=== PATIENT | male | born 1950 | race Caucasian/White ===

== ENCOUNTER 2016-11-30 10:07 | Emergency (ER) | payer BC ==
[~2016-11-30] VITALS: Ht 182.9 cm; Wt 149.2 kg
[~2016-11-30 10:07] MED LIST: ALLO300T2 PO; ASCO10007 PO; GABA600T PO; INSU100V7 SQ; METF850T2 PO; METO25TA6 PO; NORT25CA PO; OXYB5TAB PO; PARO30TA74 PO; PRAV40TA3 PO
--- NOTE | 2016-11-30 10:07 | NUR ---
BIBRA 909N C/O LACERATION BELOW THE LEFT POPLITEAL AREA S/P GLF FROM WHEELCHAIR TO BED
[2016-11-30] MEDS ORDERED: LIDOCAINE HCL/PF 1% 30 ML SDV ONE (10:20)
[2016-11-30] MEDS: LIDOCAINE 1%-EPI 1:100,000 20 ML VIAL TP ONE (10:21)
--- NOTE | 2016-11-30 10:30 | NUR ---
DR MILLS AT BEDSIDE FOR EVAL
--- NOTE | 2016-11-30 11:07 | NUR ---
PT TAKEN TO CT
--- NOTE | 2016-11-30 11:38 | NUR ---
Patient discharged to home in stable condition. Written and verbal after care instructions given. Patient verbalizes understanding of instruction.
[2016-11-30 11:39] VITALS: BP 152/73
--- NOTE | 2016-11-30 11:41 | NUR ---
CALLED [facility] FOR TRANSPORT, SPOKE WITH SILVIA. EXPECTING A CALL BACK FOR AN ETA.
--- NOTE | 2016-11-30 12:40 | NUR ---
[facility] CALLED WITH AN ETA OF 1HR FOR TRANSPORT.
--- NOTE | 2016-11-30 14:05 | NUR ---
[facility] GETTING BARIATRIC GURNEY AROUND 330 PM-4PM
--- NOTE | 2016-11-30 14:06 | NUR ---
CALLED FOR FOOD TRAY CARDIAC DIABETIC DIET
--- NOTE | 2016-11-30 15:39 | NUR ---
Patient discharged to home in stable condition VIA AMBULANCE. Written and verbal after care instructions given. Patient AND EMS verbalized understanding of instruction.
== END 2016-11-30 16:04 | disposition home or self-care (01) ==
LOC: ER 10:09
DX: S81.812A Laceration without foreign body, left lower leg, initial encounter (principal); L03.116 Cellulitis of left lower limb; R60.0 Localized edema; N31.9 Neuromuscular dysfunction of bladder, unspecified; R51 Headache; E11.9 Type 2 diabetes mellitus without complications; I10 Essential (primary) hypertension; Z74.01 Bed confinement status; Z79.4 Long term (current) use of insulin; Z88.0 Allergy status to penicillin; Z89.611 Acquired absence of right leg above knee; Z99.3 Dependence on wheelchair; Z88.1 Allergy status to other antibiotic agents; Z88.8 Allergy status to other drugs, medicaments and biological substances; Z98.890 Other specified postprocedural states; W18.39XA Other fall on same level, initial encounter; Y93.89 Activity, other specified; Y92.89 Other specified places as the place of occurrence of the external cause; Y99.9 Unspecified external cause status
CPT/HCPCS: 70450-TC; A4606; A6402; J3490; Z7610

== ENCOUNTER 2017-06-21 18:42 | Inpatient (IN) | payer BC ==
[~2017-06-21] VITALS: Ht 182.9 cm; Wt 156.0 kg
--- NOTE | 2017-06-21 18:45 | NUR ---
BIBRA88 C/O HIGH BP 180/100 AND LEFT LOWER EXTREMITY EDEMA/REDNESS. PATIENT HAS RIGHT AKA, WITH LEFT LEG REDNESS, SWELLING, AND WARM TO TOUCH. PATIENT IS A/OX 4. BREATHING EVEN AND UNLABORED. NO SOB, NAD. PARK IN PLACE CARBON SETTER. VITALS STABLE. SAFETY AND COMFORT MEASURES IN PLACE. AWAITING MD ORDERS.
--- NOTE | 2017-06-21 18:50 | NUR ---
NEW IV STARTED ON RFA, 18G, BLOOD DRAWN AND SENT TO LAB.
[2017-06-21] MEDS ORDERED: IV NS 0.9% 500 ML BAG IV ONE (19:00)
[2017-06-21] MEDS ORDERED: VANCOMYCIN 1 GM in IV D5W 250 ML IV ONE (19:00)
--- NOTE | 2017-06-21 19:00 | NUR ---
URINE OBTAINED AND SENT TO LAB.
[2017-06-21 19:06] LABS: BASOPHILS # (AUTO) 0.2 /CMM (0.0-0.2); BASOPHILS % (AUTO) 1.1 % (0.0-2.0); EOSINOPHILS # (AUTO) 0.2 /CMM (0.0-0.7); EOSINOPHILS % (AUTO) 1.2 % (0.0-6.0); HEMATOCRIT 35 % (39-51); HEMOGLOBIN 11.4 g/dL (13.5-17.5); LYMPHOCYTES # (AUTO) 1.4 /CMM (0.8-4.8); LYMPHOCYTES % (AUTO) 9.8 % (20.0-44.0); MEAN CORPUSCULAR HEMOGLOBIN 28 PG (26.0-33.0); MEAN CORPUSCULAR HGB CONC 33 g/dl (31.0-36.0); MEAN CORPUSCULAR VOLUME 86 fL (80-96); MONOCYTES # (AUTO) 1.2 /CMM (0.1-1.30); MONOCYTES % (AUTO) 8.5 % (2.0-12.0); NEUTROPHILS # (AUTO) 11.5 /CMM (1.8-8.9); NEUTROPHILS % (AUTO) 79.4 % (43.0-81.0); PLATELET COUNT (AUTO) 410 /CMM (150-450); RDW COEFFICIENT OF VARIATION 13.8 (11.5-15.0); RED BLOOD CELL COUNT(AUTO) 4.03 MIL/uL (4.5-6.0); WHITE BLOOD COUNT (AUTO) 14.5 K/uL (4.3-11.0)
[2017-06-21] MEDS ORDERED: VANCOMYCIN 1 GM VIAL ONE (19:19)
[2017-06-21 19:20] LABS: INR 0.98 (0.85-1.15)
[2017-06-21] MEDS ORDERED: SITA100T PO (19:20)
[2017-06-21] MEDS ORDERED: AMLO5TAB2 PO (19:20)
[2017-06-21] MEDS ORDERED: FURO20TA4 PO (19:20)
[2017-06-21 19:28] LABS: APPEARANCE,URINE Clear (CLEAR); BILIRUBIN,URINE Negative (NEGATIVE); BLOOD, URINE Moderate Ery/uL (NEGATIVE); COLOR,URINE Yellow (YELLOW); KETONES,URINE Negative (NEGATIVE); LEUKOCYTE ESTERASE ,URINE Large (NEGATIVE); NITRITE, URINE Positive (NEGATIVE); PROTEIN,URINE >=300 mg/dl (NEGATIVE); UGLUCOSE Negative (NEGATIVE)
[2017-06-21 19:28] LABS: ALANINE AMINOTRANSFERASE 21 U/L (12-78); ALKALINE PHOSPHATASE 111 U/L (46-116); ASPARTATE AMINOTRANSFERASE 21 U/L (15-37); BILIRUBIN,DIRECT 0.1 mg/dL (0.0-0.2); BILIRUBIN,TOTAL 0.2 mg/dL (0.2-1.0); CALCIUM, SERUM 8.8 mg/dL (8.5-10.1); CARBON DIOXIDE 29 mmol/L (21-32); CHLORIDE 105 mmol/L (98-107); CREATININE 2.4 mg/dL (0.6-1.3); GLUCOSE 144 mg/dL (74-106); POTASSIUM 5.3 mmol/L (3.5-5.1); SODIUM SERUM 140 mmol/L (136-145); TOTAL PROTEIN, SERUM 7.1 g/dL (6.4-8.2); UREA NITROGEN, BLOOD 41 mg/dL (7-18)
--- NOTE | 2017-06-21 19:28 | NUR ---
REPORT GIVEN TO PELLETIZER OPERATOR, ED FOR ALISON.
[2017-06-21 19:30] LABS: TROPONIN I < 0.017 ng/mL (0.00-0.056)
[2017-06-21 19:41] LABS: BACTERIA,URINE 3+ /HPF (None Seen); WBC,URINE 81-100 /HPF (0-3)
[2017-06-21 19:42] LABS: SQUAMOUS EPITHELIAL CELL,UR Few /HPF (None Seen)
--- NOTE | 2017-06-21 21:17 | NUR ---
PAGED EPIC FOR PANEL
--- NOTE | 2017-06-21 21:33 | NUR ---
ER MD TALKING TO PT REGARDING PT ADMISSION.
--- NOTE | 2017-06-21 21:44 | NUR ---
CALLED NURSE SUP FOR TELE BED
[2017-06-21] MEDS ORDERED: MORPHINE SULFATE INJ 2 MG/ML DISP.SYRIN IV PRN (22:00)
[2017-06-21] MEDS ORDERED: ONDANSETRON HCL/PF 4 MG/2 ML VIAL IVP PRN (22:00)
[2017-06-21] MEDS ORDERED: DEXTROSE 50%-WATER 50 ML DISP.SYRIN IV PRN (22:00)
[2017-06-21] MEDS ORDERED: ACETAMINOPHEN 325 MG TABLET PO PRN (22:00)
[2017-06-21] MEDS ORDERED: ZOLPIDEM TARTRATE 5 MG TABLET PO PRN (22:00)
[2017-06-21] MEDS ORDERED: Z GUARD REMEDY 2 OZ OINT TP PRN (22:00)
[2017-06-21] MEDS ORDERED: MAG HYDROX/AL HYDROX/SIMETH 30 ML UDC PO PRN (22:00)
[2017-06-21] MEDS ORDERED: CEFEPIME 1 GM in IV D5W 50 ML IV ONE (22:00)
[2017-06-21] MEDS ORDERED: MAGNESIUM HYDROXIDE 30 ML UDC PO PRN (22:00)
[2017-06-21] MEDS ORDERED: *INSULIN REGULAR(HUMULIN R)HUM 100 UNIT/ML VIAL SQ PRN (22:00)
--- NOTE | 2017-06-21 22:47 | NUR ---
REPORT CALLED TO M/S KENNETH TIRADO. PENDING HOSPITAL ADMISSION.
[2017-06-21 23:20] VITALS: BP 154/72
--- NOTE | 2017-06-21 23:20 | NUR ---
MS RN ADMITTING NOTES: ADMITTED A 66 YO MALE PATIENT WHO WAS SEEN IN THE ER FOR WORSENING LEFT LEG SWELLING NAD WARMTH. PATIENT WAS BROUGHT TO MS FLOOR VIA KAILEE, ALIYA, ON O2 AT 2 LPM VIA NC, BUT UPON COMING INTO ROOM REQUESTED FOR IT NOT TO BE PLACED BACK ON HIM. BREATHING EVEN AND UNLABORED, BREATH SOUNDS CLEAR AT UPPER LUNG FUENTES AND DIMINISHED AT BASES. PIV OVER RFA G 18 INTACT AND PATENT TO FLUSH. NOTED R ABOVE KNEE AMPUTATION, AND LEFT LEG WITH 3+ PITTING EDEMA, REDNESS AND WARMTH FROM BELOW THE KNEE TO ANKLE. LEFT FOOT ALSO WITH 3+ PITTING EDEMA. NOTED WOUNDS OVER LEFT HEEL AND SACRAL AREA, PROTECTED WITH MEPILEX. PARK CATHETER IN PLACE DRAINING CLOUDY YELLOW URINE. PROVIDED FOR COMFORT AND SAFETY. BED IN LOWEST AND LOCKED POSITION, SIDERAILS UP X 3, CALL LIGHT WITHIN REACH. WILL CONT TO MONITOR.
[2017-06-21 23:30] VITALS: BP 154/72
[2017-06-22] MEDS ORDERED: CEFEPIME 1 GM VIAL ONE (00:08)
[2017-06-22] MEDS: BLOOD SUGAR DIAGNOSTIC 1 EACH STRIP VI SCH ×4 (00:10→17:47)
--- NOTE | 2017-06-22 00:10 | NUR ---
RN NOTES: PATIENT COMPLAINED OF 6/10 PAIN OVER LEFT LEG/ CALF AND FOOT. ADMINISTERED NORCO 5-325 MG PO. BLOOD SUGAR CHECKED AT 119 MG/DL, NO INSULIN INDICATED AT THIS TIME.
[2017-06-22] MEDS: HYDROCODONE/APAP 5/325MG 1 EACH TABLET PO PRN ×2 (00:11→09:19)
--- NOTE | 2017-06-22 00:30 | NUR ---
RN NOTES: CEFEPIME IV ORDERED BY DR LINDO A ONE TIME DOSE GIVEN BY ER NURSE IN ROOM.
[2017-06-22 04:08] VITALS: BP 144/80
--- NOTE | 2017-06-22 05:30 | NUR ---
RN NOTES: OFFERED TO CHANGE PATIENT'S PARK CATHETER, EXPLAINED THAT THIS IS THE RECOMMENDATION OF MD, AND THAT HE APPEARS TO HAVE INFECTION WITH HIS URINE. PATIENT REFUSED, SAYING THAT IT HAS JUST BEEN CHANGED WEDNESDAY OF LAST WEEK,JUNE 14 2017. RISKS AND BENEFITS EXPLAINED TO PATIENT. PATIENT STILL REFUSING. WILL CONT TO MONITOR.
--- NOTE | 2017-06-22 06:34 | NUR ---
MS RN CLOSING NOTES: PATIENT IN BED, AOX4, ON ROOM AIR, BREATHING EVEN AND UNLABORED. APPEARS CALM AND IN NO DISTRESS. PIV OVER RFA G 18 INTACT AND PATENT TO FLUSH. PROVIDED FOR COMFORT AND SAFETY, BED IN LOWEST AND LOCKED POSITION, SIDERAILS UP X 3, CALL LIGHT WITHIN REACH. AM BLOOD SUGAR CHECKED AT 142 MG/DL, WILL ADMINISTER REGULAR INSULIN PER SCALE SOON MEDICATION IS AVAILABLE. WILL ENDORSE TO AM RN FOR ALISON.
[2017-06-22 06:57] LABS: BASOPHILS % (AUTO) 0.2 % (0.0-2.0); EOSINOPHILS # (AUTO) 0.2 /CMM (0.0-0.7); EOSINOPHILS % (AUTO) 1.2 % (0.0-6.0); HEMATOCRIT 33 % (39-51); HEMOGLOBIN 11.1 g/dL (13.5-17.5); LYMPHOCYTES # (AUTO) 1.3 /CMM (0.8-4.8); MEAN CORPUSCULAR HEMOGLOBIN 29 PG (26.0-33.0); MEAN CORPUSCULAR HGB CONC 33 g/dl (31.0-36.0); MEAN CORPUSCULAR VOLUME 88 fL (80-96); MONOCYTES # (AUTO) 1.1 /CMM (0.1-1.30); MONOCYTES % (AUTO) 8.4 % (2.0-12.0); NEUTROPHILS # (AUTO) 10.3 /CMM (1.8-8.9); NEUTROPHILS % (AUTO) 80.2 % (43.0-81.0); PLATELET COUNT (AUTO) 339 /CMM (150-450); RDW COEFFICIENT OF VARIATION 14.3 (11.5-15.0); RED BLOOD CELL COUNT(AUTO) 3.82 MIL/uL (4.5-6.0); WHITE BLOOD COUNT (AUTO) 12.9 K/uL (4.3-11.0)
[2017-06-22] MEDS: INSULIN REGULAR, HUMAN 100 UNIT/ML 3 ML VIAL SQ PRN ×2 (07:11→12:09)
[2017-06-22 07:17] LABS: CALCIUM, SERUM 8.5 mg/dL (8.5-10.1); CREATININE 2.2 mg/dL (0.6-1.3); MAGNESIUM 1.8 mg/dL (1.8-2.4); PHOSPHORUS 3.7 mg/dL (2.5-4.9); POTASSIUM 4.7 mmol/L (3.5-5.1)
[2017-06-22 08:00] VITALS: BP 133/67
--- NOTE | 2017-06-22 08:00 | NUR ---
MS KENNETH AM NOTES: RECEIVED PT AOX4, ON O2 AT 2 LPM VIA NC, BREATHING EVEN AND UNLABORED, BREATH SOUNDS CLEAR AT UPPER LUNG FUENTES AND DIMINISHED AT BASES. PIV OVER RFA G 18 INTACT AND PATENT TO FLUSH. NOTED R ABOVE KNEE AMPUTATION, AND LEFT LEG WITH 3+ PITTING EDEMA, REDNESS AND WARMTH FROM BELOW THE KNEE TO ANKLE. LEFT FOOT ALSO WITH 3+ PITTING EDEMA. AFLOAT PRABHAKAR HEELS ON PILLOWS. NOTED WOUNDS OVER LEFT HEEL AND SACRAL AREA, PROTECTED WITH MEPILEX. TURNED EVERY TWO HRS.AWAITING FOR WOUND CONSULT.WILL ORDER FOR SPECIAL MATTRESS. PARK CATHETER IN PLACE DRAINING CLOUDY YELLOW URINE. PROVIDED FOR COMFORT AND SAFETY. BED IN LOWEST AND LOCKED POSITION, SIDERAILS UP X 3, CALL LIGHT WITHIN REACH. WILL CONT TO MONITOR.
[2017-06-22] MEDS ORDERED: FEE PK DOSING 1 MIN EA MC ONE (08:17)
[2017-06-22] MEDS ORDERED: GABAPENTIN 300 MG CAPSULE PO SCH ×2 (08:30→11:30)
[2017-06-22] MEDS: METOPROLOL TARTRATE 25 MG TABLET PO SCH ×2 (08:45→17:46)
[2017-06-22] MEDS ORDERED: FUROSEMIDE 20 MG TABLET PO SCH (09:00)
[2017-06-22] MEDS ORDERED: AMLODIPINE BESYLATE 5 MG TABLET PO SCH (09:00)
--- NOTE | 2017-06-22 10:00 | NUR ---
PT'S PARK CATHETER IS LEAKING AND THE BEDSHEETS AND CHUX WAS WET AND MODERATE YELLOW URINE STAINS.PT REFUSED TO HAVE HIS PARK CATH CHANGED SAYING THAT HE HAS HOME HEALTH NURSE WHO IS COMING THIS WEDNESDAY TO CHANGE IT AND THEY USE A SPECIAL COUDE CATHETER SIZE 22
--- NOTE | 2017-06-22 10:09 | NUR ---
WOUND CARE CONSULT: PT PRESENTS WITH OBESITY, RT POSTERIOR THIGH WOUND, LEFT HEEL ULCER AND SACRAL ULCER, PRESENT ON ADMISSION. PARK CATH NOTED TO BE LEAKING. RT AKA STUMP NOTED. RASH NOTED TO GROIN AREAS WITH SOME SPOTS ON ABDOMEN. ALL SKIN PROTECTION AND WOUND CARE RECOMMENDATIONS DISCUSSED WITH NURSING STAFF. [facility] BED WITH ETS AIR ORDERED. WILL SEE PRN. CURRENT TMIOTHY SCORE IS 14. MD IN AGREEMENT WITH PLAN OF CARE. Addendum: 06/22/17 at 1012 by BUNNY JUNG WNDNU Amended: Links added.
[2017-06-22] MEDS ORDERED: MINERAL OIL/PETROLATUM,WHITE 120 GM JAR TP PRN (10:30)
[2017-06-22] MEDS ORDERED: HYDROGEL DRESSING 90 GM TUBE TP PRN (10:30)
[2017-06-22] MEDS ORDERED: HYDROGEL DRESSING 90 GM TUBE TP SCH (10:30)
[2017-06-22] MEDS: MICONAZOLE NITRATE 2% CREAM 1 EA TUBE TP SCH ×2 (13:46→17:47)
[2017-06-22 16:00] VITALS: BP 172/87
--- NOTE | 2017-06-22 17:41 | NUR ---
RECEIVED A CALL FROM SHANIQUA WHO STATED THAT THERE IS [facility] THE [facility] ALREADY SPOKE TO DR MONAE WHO STATED THAT THE PT IS STABLE TO BE DISCHARGED TODAY.PT MADE AWARE.PRESSURE SUPERVISOR TIME BY [facility] WILL BE AT 2029.
--- NOTE | 2017-06-22 18:30 | NUR ---
PT COMFORTABLY LYING IN BARIMAXX MATTRESS.PT DENYING ANY PAIN OR DISTRESS.PAIN MGT EFFECTIVE.CALLED IN REPORT TO RUBI [phone].[facility] ([phone]) WILL BANK TELLER MACHINE MECHANIC THE PT AT 2030.ENDORSED DISCHARGE NOTES TO BRANDONHOMOEOPATH RN.
--- NOTE | 2017-06-22 19:01 | NUR ---
Met with patient,he is morbidly obese. He is alert and pleasant. He lives in the 1st floor apartment with and family. He is confined to chair most of the time. He requires max assist with adl's. He owns 2 wheelchairs, adjustable and a cane. He is currently on service with [facility] [employer] ([phone]). Stated he has a lot of support at home. Might need bariatric transportation to go home. Addendum: 06/22/17 at 1901 by JEANNINE STEELE RN Amended: Links added.
--- NOTE | 2017-06-22 19:30 | NUR ---
RN OPENING NOTES PATIENT IS IN BED, ALERT AND ORIENTED X4. VS STABLE. NO C/O PAIN OR DISCOMFORT AT THIS TIME. RESPIRATIONS EVEN AND UNLABORED. NO SOB NOTED. IV ACCESS ON RIGHT FA 18 G PATENT AND INTACT, NO REDNESS OR INFILTRATION NOTED. F/C IS IN PLACE, DRAINING CLEAR AND YELLOW URINE. PATIENT IS GOING TO BE DISCHARGED TO [facility]. ALL PAPERS SIGNED AND DISCHARGED TEACHING PROVIDED. BED IN LOW AND LOCKED POSITION, SIDE RAILS X2. CALL LIGHT WITHIN EASY REACH. WILL CONTINUE TO MONITOR.
[2017-06-22 20:00] VITALS: BP 145/70
[2017-06-22] MEDS ORDERED: VANCOMYCIN 1.5 GM in IV NS 0.9% 500 ML IV SCH (21:00)
--- NOTE | 2017-06-22 21:00 | NUR ---
RN CLOSING NOTES PATIENT IS DISCHARGED TO [facility] VIA AMBULANCE. VS STABLE. RESPIRATIONS EVEN AND UNLABORED. NO SOB. IV AND FC REMOVED. ALL BELONGINGS ARE TAKEN WITH THE PATIENT. PICTURES ARE TAKEN AND PLACED IN THE CHART. ALL DISCHARGED PAPERS SIGHED. ALL NEEDS AND CARE PROVIDED.
[2017-06-22] MEDS ORDERED: CEFEPIME 1 GM in IV D5W 50 ML IV SCH (23:00)
== END 2017-06-22 21:55 | disposition short-term general hospital (02) | DRG 871 ==
LOC: ER 18:43 → TELE 22:57
PROVIDERS: ADMIT Internal Medicine; ATTEND Internal Medicine
DX: A41.9 Sepsis, unspecified organism (principal); E43 Unspecified severe protein-calorie malnutrition; E11.22 Type 2 diabetes mellitus with diabetic chronic kidney disease; E11.40 Type 2 diabetes mellitus with diabetic neuropathy, unspecified; E11.621 Type 2 diabetes mellitus with foot ulcer; E86.0 Dehydration; L03.116 Cellulitis of left lower limb; N39.0 Urinary tract infection, site not specified; Z68.42 Body mass index [BMI] 45.0-49.9, adult; E66.01 Morbid (severe) obesity due to excess calories; N31.9 Neuromuscular dysfunction of bladder, unspecified; I12.9 Hypertensive chronic kidney disease with stage 1 through stage 4 chronic kidney disease, or unspecified chronic kidney disease; N18.9 Chronic kidney disease, unspecified; Z89.611 Acquired absence of right leg above knee; Z95.1 Presence of aortocoronary bypass graft; Z79.899 Other long term (current) drug therapy; Z88.1 Allergy status to other antibiotic agents; Z88.0 Allergy status to penicillin; Z79.84 Long term (current) use of oral hypoglycemic drugs; Z79.4 Long term (current) use of insulin; L97.529 Non-pressure chronic ulcer of other part of left foot with unspecified severity; I25.10 Atherosclerotic heart disease of native coronary artery without angina pectoris; E78.5 Hyperlipidemia, unspecified; E87.5 Hyperkalemia; D63.8 Anemia in other chronic diseases classified elsewhere; G89.4 Chronic pain syndrome; I70.0 Atherosclerosis of aorta
CPT/HCPCS: 36415; 71045-TC; 80048-TC; 80076-TC; 81000-TC; 82962-TC; 83605-TC; 83735-TC; 84100-TC; 84484-TC; 85025-TC; 85730-TC; 87040-TC; 87081-TC; 87086-TC; 87186-TC; 93971-TC; A6248; A6403; J0692; J1815; J2270; J3370; J7040; J7050; J7060

== ENCOUNTER 2017-07-23 21:40 | Emergency (ER) | payer BC, MEDICAID ==
[~2017-07-23] VITALS: Ht 177.8 cm; Wt 151.5 kg
[~2017-07-23 21:40] MED LIST changes: -ALLO300T2 PO; +AMLO5TAB7 PO; -ASCO10007 PO; +FURO20TA4 PO; -METF850T2 PO; -NORT25CA PO; -OXYB5TAB PO; -PARO30TA74 PO; -PRAV40TA3 PO; +SITA100T PO
--- NOTE | 2017-07-23 21:50 | NUR ---
PT BIBA#[id number] FROM HOME, PT STATES HE NEEDS HIS PARK CHANGED AND HAS NOT BEEN ABLE TO URINATE SINCE 1400 TODAY, NAD NOTED, VSS, RESP EVEN AND UNLABORED, PT WAS PUT ON MONITOR, WAITING FOR MD KYLE.
[2017-07-23] MEDS ORDERED: LIDOCAINE 2% JEL UROJET 10 ML MM ONE ×2 (22:24→22:30)
--- NOTE | 2017-07-23 22:58 | NUR ---
urine sent to lab
[2017-07-23 23:21] LABS: APPEARANCE,URINE CLOUDY (CLEAR); BILIRUBIN,URINE NEGATIVE (NEGATIVE); BLOOD, URINE 3+ Ery/uL (NEGATIVE); COLOR,URINE AMBER (YELLOW); KETONES,URINE NEGATIVE (NEGATIVE); LEUKOCYTE ESTERASE ,URINE 3+ (NEGATIVE); NITRITE, URINE NEGATIVE (NEGATIVE); PROTEIN,URINE 2+ mg/dl (NEGATIVE); UGLUCOSE NEGATIVE (NEGATIVE); UROBILINOGEN,URINE 0.2 EU/dL (0.2)
--- NOTE | 2017-07-23 23:26 | NUR ---
Patient is resting comfortably in bed with eyes closed. Easily aroused. VSS
--- NOTE | 2017-07-23 23:27 | NUR ---
CALLED [facility] TO ARRANGE A BARIATRIC BLS TRANSPORT BACK TO HIS RESIDENCE AND SPOKE WITH DISPATCHER ETTA AND WAS GIVEN AN ETA CORRECTIONAL AGENCY DIRECTOR TIME OF 0230.
[2017-07-23 23:43] LABS: BACTERIA,URINE Many /HPF (None Seen); RBC,URINE TOO NUMEROUS TO COUN /HPF (0-2); SQUAMOUS EPITHELIAL CELL,UR Few /HPF (None Seen); WBC,URINE TOO NUMEROUS TO COUN /HPF (0-3); YEAST,URINE Few /HPF (None Seen)
--- NOTE | 2017-07-24 00:30 | NUR ---
ON CELL PHONE. DENIES ANY SX'S AT THIS TIME. HOB ELEA=VATED FOR COMFORT.
--- NOTE | 2017-07-24 01:02 | NUR ---
REPOSITIONED FOR COMFORT. REMINDED OS ETA 0230.
--- NOTE | 2017-07-24 02:30 | NUR ---
REPORT GIVEN TO [facility] STAFF AND PT TRANSPORTED HOME.
[2017-07-24 02:31] VITALS: BP 147/91
== END 2017-07-24 02:32 | disposition home or self-care (01) ==
LOC: ER 21:42
DX: T83.098A Other mechanical complication of other urinary catheter, initial encounter (principal); R31.9 Hematuria, unspecified; E11.9 Type 2 diabetes mellitus without complications; E66.01 Morbid (severe) obesity due to excess calories; I10 Essential (primary) hypertension; Z79.4 Long term (current) use of insulin; Z88.0 Allergy status to penicillin; Z89.611 Acquired absence of right leg above knee; Z88.8 Allergy status to other drugs, medicaments and biological substances
CPT/HCPCS: 81000-TC; 87086-TC; 87186-TC; A4217; A4606; J3490; Z7610

== ENCOUNTER 2017-08-28 17:55 | Inpatient (IN) | payer BC, MEDICAID ==
[~2017-08-28] VITALS: Ht 182.9 cm; Wt 155.1 kg
--- NOTE | 2017-08-28 18:05 | NUR ---
NEW IV STARTED ON RAC, 20G. BLOOD DRAWN AND SENT TO LAB.
--- NOTE | 2017-08-28 18:09 | NUR ---
BIB RA 878 FROM HOME C/O LEFT LEG SWELLING, REDNESS, AND WARMTH. PATIENT ALSO C/O UTI SYMPTOMS. PARK ALREADY IN PLACE. PATIENT IS A/OX 4. BREATHING EVEN AND UNLABORED. NO SOB, NAD, VITALS STABLE. PATIENT HAS A RIGHT AKA. SAFETY AND COMFORT MEASURES IN PLACE. AWAITING MD ORDERS.
[2017-08-28 18:24] LABS: BASOPHILS # (AUTO) 0.1 /CMM (0.0-0.2); BASOPHILS % (AUTO) 0.6 % (0.0-2.0); EOSINOPHILS % (AUTO) 0.2 % (0.0-6.0); HEMATOCRIT 36 % (39-51); HEMOGLOBIN 11.8 g/dL (13.5-17.5); LYMPHOCYTES # (AUTO) 1.2 /CMM (0.8-4.8); LYMPHOCYTES % (AUTO) 8.1 % (20.0-44.0); MEAN CORPUSCULAR HGB CONC 33 g/dl (31.0-36.0); MEAN CORPUSCULAR VOLUME 86 fL (80-96); MONOCYTES # (AUTO) 1.5 /CMM (0.1-1.30); MONOCYTES % (AUTO) 9.6 % (2.0-12.0); NEUTROPHILS # (AUTO) 12.4 /CMM (1.8-8.9); NEUTROPHILS % (AUTO) 81.5 % (43.0-81.0); PLATELET COUNT (AUTO) 379 /CMM (150-450); RDW COEFFICIENT OF VARIATION 13.6 (11.5-15.0); RED BLOOD CELL COUNT(AUTO) 4.21 MIL/uL (4.5-6.0); WHITE BLOOD COUNT (AUTO) 15.2 K/uL (4.3-11.0)
[2017-08-28] MEDS ORDERED: VANCOMYCIN 1 GM in IV D5W 250 ML IV ONE (18:30)
[2017-08-28 18:32] LABS: CALCIUM, SERUM 8.3 mg/dL (8.5-10.1); CARBON DIOXIDE 28 mmol/L (21-32); CHLORIDE 104 mmol/L (98-107); CREATININE 2.5 mg/dL (0.6-1.3); GLUCOSE 150 mg/dL (74-106); POTASSIUM 5.2 mmol/L (3.5-5.1); SODIUM SERUM 137 mmol/L (136-145); UREA NITROGEN, BLOOD 45 mg/dL (7-18)
[2017-08-28 18:36] LABS: INR 1.1 (0.85-1.15)
--- NOTE | 2017-08-28 18:37 | NUR ---
URINE OBTAINED AND SENT TO LAB.
[2017-08-28 18:40] LABS: TROPONIN I < 0.017 ng/mL (0.00-0.056)
[2017-08-28] MEDS ORDERED: BLOO-668 IN (18:40)
[2017-08-28 18:44] LABS: APPEARANCE,URINE Cloudy (CLEAR); BILIRUBIN,URINE Negative (NEGATIVE); BLOOD, URINE Moderate Ery/uL (NEGATIVE); COLOR,URINE Yellow (YELLOW); KETONES,URINE Negative (NEGATIVE); LEUKOCYTE ESTERASE ,URINE Large (NEGATIVE); NITRITE, URINE Negative (NEGATIVE); PROTEIN,URINE >=300 mg/dl (NEGATIVE); UGLUCOSE Negative (NEGATIVE); UROBILINOGEN,URINE 0.2 EU/dL (0.2)
[2017-08-28 18:44] LABS: ALANINE AMINOTRANSFERASE 26 U/L (12-78); ALBUMIN 2.4 g/dL (3.4-5.0); ALKALINE PHOSPHATASE 93 U/L (46-116); ASPARTATE AMINOTRANSFERASE 24 U/L (15-37); B-TYPE NATRIURETIC PEPTIDE 1833 PG/ML (0-125); BILIRUBIN,DIRECT 0.1 mg/dL (0.0-0.2); BILIRUBIN,TOTAL 0.4 mg/dL (0.2-1.0); TOTAL PROTEIN, SERUM 7.2 g/dL (6.4-8.2)
[2017-08-28 18:58] LABS: BACTERIA,URINE Many /HPF (None Seen)
[2017-08-28 18:59] LABS: SQUAMOUS EPITHELIAL CELL,UR Moderate /HPF (None Seen)
[2017-08-28 19:00] LABS: TRIPLE PHOSPHATE CRYSTAL,UR Moderate /HPF (None Seen)
[2017-08-28 19:01] LABS: URINE AMORPHOUS PHOSPHATES Many /HPF (None Seen); WBC,URINE 21-50 /HPF (0-3)
--- NOTE | 2017-08-28 20:19 | NUR ---
REPORT GIVEN TO JOSE. ROOM CHANGE TO 315-2
[2017-08-28 20:45] VITALS: BP 133/66
--- NOTE | 2017-08-28 20:45 | NUR ---
admission notes: received report from sebastian livingston rn, pt brought to the unit via gurney, pt is awake, a/o x4, on 2L via nc, respiration even and unlabored, right ac iv access patent and flushing well, receiving vancomycin. pt is over weight, will order barrimax bed. per report pt refused to changed and remove espinoza catheter he stated he had trauma before/urethral trauma, and neurogenic bladder, md aware of pt's refusal. oriented pt to unit policy and hourly rounding, use of call light system. skin assessment performed, noted skin issues take pictures and attached to chart, will obtain wound care consult. pt has right aka, and left 2nd and 3rd toe amputation. pt came with own heel protector. pt insisted in using his own clothes/shirt stated he's more comfortable wearing it. lle offloaded on pillows. discussed with pt regarding plan of care, pt agree and understand. safety precautions for fall initiated call light in reach, will continue monitoring pt.
[2017-08-28 21:00] VITALS: BP 133/66
[2017-08-28] MEDS ORDERED: GENTAMICIN 80 MG in IV D5W 50 ML IV SCH (21:00)
[2017-08-28] MEDS ORDERED: ZOLPIDEM TARTRATE 5 MG TABLET PO PRN (21:00)
[2017-08-28] MEDS ORDERED: ONDANSETRON HCL/PF 4 MG/2 ML VIAL IVP PRN (21:00)
[2017-08-28] MEDS ORDERED: Z GUARD REMEDY 2 OZ OINT TP PRN (21:00)
[2017-08-28] MEDS ORDERED: MAGNESIUM HYDROXIDE 30 ML UDC PO PRN (21:00)
[2017-08-28] MEDS ORDERED: ACETAMINOPHEN 325 MG TABLET PO PRN (21:00)
[2017-08-28] MEDS ORDERED: DEXTROSE 50%-WATER 50 ML DISP.SYRIN IV PRN (21:00)
[2017-08-28 22:00] VITALS: BP 141/80
[2017-08-28] MEDS: VANCOMYCIN 1 GM in IV D5W 250 ML IV ONE ×2 (22:15→22:48)
[2017-08-28] MEDS: BLOOD SUGAR DIAGNOSTIC 1 EACH STRIP IN SCH (22:19)
[2017-08-28] MEDS: HEPARIN SODIUM, PORCINE 5000 UNITS/1 ML VIAL SQ SCH (22:21)
[2017-08-28] MEDS: INSULIN REGULAR, HUMAN 100 UNIT/ML 3 ML VIAL SQ PRN (22:22)
--- NOTE | 2017-08-28 22:23 | NUR ---
BS 174: BS 174, 3UNITS OF INSULIN GIVEN PE SLIDING SCALE, PT ON 2GM LOW NA DIET
--- NOTE | 2017-08-28 22:27 | NUR ---
NON ADMIN OF VANCOMYCIN: VANCOMYCIN GIVEN IN ER
--- NOTE | 2017-08-28 22:30 | NUR ---
CLARIFICATION REGARDING ADMINISTRATION OF VANCOMYCIN 1GM: CLARIFIED WITH MOTOR ROUTE CARRIER SUPERVISOR MAPPING REGARDING ADMINISTRATION OF ADDITIONAL ORDER FOR VANCOMYCIN 1GM, INFORMED THAT PT RECEIVED VANCOMYCIN 1GM IN ER, PER SUPERVISOR MAPPING TO GIVE THE ADDITIONAL DOSE THEN SHE ORDERED A VANCOMYCIN TO [facility] PER PHARMACY. NOC TECHNICIANCALE MATAMOROS MADE AWARE OF THE ORDER.
[2017-08-28] MEDS ORDERED: VANCOMYCIN 1 GM VIAL ONE (22:43)
[2017-08-29] MEDS ORDERED: PIPERACILLIN /TAZOBACTAM 3.375 G in IV D5W 50 ML IV SCH ×2
--- NOTE | 2017-08-29 00:53 | NUR ---
RN NOTES: CLARIFIED WITH MD REGARDING GENTAMICIN, RELAYED THAT [facility] PHARMACIST WOULD LIKE TO CLARIFY REGARDING GENTAMICIN ORDER, IF GENTAMICIN IS FOR SYNERGY WITH VANCOMYCIN OR JUST FOR TREATMENT, AND IF THE MD WOULD LIKE TO PLACED A CONSULT FOR PHARMACY TO DOSE IT INSTEAD, SPOKE TO [facility] SERVICE WORKER HELPER, SHE STATED ITS FOR UTI, AND PUT A GENTAMICIN PHARMACY TO DOSE, CONSULT PHARMACY, MEDICATION IS FOR TREATMENT FOR UTI, CONTACTED [facility] AGAIN, SPOKED WITH PATRIA, RELAYED THE ORDER
[2017-08-29] MEDS ORDERED: GENTAMICIN IV ONE ×2 (02:00→08:00)
[2017-08-29] MEDS ORDERED: NS 0.9% IV ONE ×2 (02:00→08:00)
[2017-08-29] MEDS: HYDROCODONE/APAP 5/325MG 1 EACH TABLET PO PRN ×3 (02:08→16:40)
--- NOTE | 2017-08-29 02:09 | NUR ---
PRN NORCO: PT C/O 10/19 PAIN ON HIS LEFT LEG AND BACK, REQUESTING FOR PAIN PILL, PRN NORCO 5/325 MG TAB PO ADMINISTERED AT THIS TIME, WILL CONTINUE MONITORING AND REASSESSING FOR PAIN
--- NOTE | 2017-08-29 02:33 | NUR ---
MEDICATION CLARIFICATION REGARDING GENTAMICIN: ORDER DOSE FOR GENTAMICIN IS 400MG, FAXED ORDER TO RN ALEXANDRA PATRICK, HOWEVER RN ALEXANDRA LOOK TO ALL OMNICELL FROM [facility] TO ICU, BUT THERE'S NO DOSE AVAILABLE, ALSO IN THE UNIT THERE IS GENTAMICIN 80MNG AVAILABLE BUT IS NOT ENOUGH TO THE DOSE ORDERED, CONTACTED [facility], RELAYED THE PROBLEM, PER [facility] TO CALL MD, IF REALLY WANTS TO GIVE THE DOSE NOW, WE CAN CALL [facility] TO HAVE THEM MIX THE MEDICATION, BUT IF CAN WAIT, WE'LL WAIT FOR THE PHARMACY IN HOUSE TO OPEN AT 0700AM. CALLED SITE RELIABILITY ENGINEER REPAIR WEAVER, RELAYED THE PROBLEM, PER NIKIA REPAIR WEAVER, THAT CAN WAIT TILL 0700AM WHEN THE PHARMACY OPENS, BUT ORDERED CEFTRIAXONE 1GM X 1DOSE NOW, INFORMED REPAIR WEAVER THAT PT HAS ALLERGY WITH PENICILLIN, PER REPAIR WEAVER STATED OKAY TO GIVE.
[2017-08-29] MEDS ORDERED: CEFTRIAXONE 1 G VIAL ONE (02:41)
[2017-08-29] MEDS ORDERED: CEFTRIAXONE 1 G in IV D5W 50 ML IV ONE (03:00)
[2017-08-29] MEDS: BLOOD SUGAR DIAGNOSTIC 1 EACH STRIP IN SCH ×4 (05:51→21:39)
[2017-08-29] MEDS: INSULIN REGULAR, HUMAN 100 UNIT/ML 3 ML VIAL SQ PRN ×3 (05:53→21:42)
--- NOTE | 2017-08-29 05:53 | NUR ---
BS 152: BS 152, 2UNITS OF INSULIN GIVEN PER SLIDING SCALE, PT TOLERATING PO INTAKE
--- NOTE | 2017-08-29 06:48 | NUR ---
RN CLOSING NOTES: PT IN BED, AWAKE, REMAINS ON 2L VIA NC, RESPIRATION EVEN AND UNLABORED. IV ACCESS REMAINS PATENT AND FLUSHING WELL, ON HL. PARK CATHETER REMAINS IN PLACED, BAG EMPTIED BY UNIFORM ATTENDANT. LLE REMAINS OFFLOADED. VS REMAINS STABLE, NEEDS ATTENDED. AWAITING FOR BARIMAXX BED TO BE DELIVER, WOUND CARE CONSULT OBTAINED, SAFETY PRECAUTIONS FOR FALL REMAINS ENGAGED, CALL LIGHT IN REACH. WILL ENDORSE TO DAY RN FOR ALISON.
--- NOTE | 2017-08-29 07:10 | NUR ---
MS RN NOTES PATIENT IN BED ALERT ORIENTED X4. NO ACUTE DISTRESS NOTED. BREATHING UNLABORED. ON O2 @ 2LPM VIA NC. IV ACCESS PATENT AND INTACT. PARK CATHETER IN PLACE. SAFETY MEASURES IN PLACE. CALL LIGHT WITHIN REACH. WILL CONTINUE TO MONITOR ACCORDINGLY.
[2017-08-29 07:25] LABS: BASOPHILS # (AUTO) 0.1 /CMM (0.0-0.2); BASOPHILS % (AUTO) 0.5 % (0.0-2.0); EOSINOPHILS % (AUTO) 0.2 % (0.0-6.0); HEMATOCRIT 32 % (39-51); HEMOGLOBIN 10.5 g/dL (13.5-17.5); LYMPHOCYTES # (AUTO) 1.1 /CMM (0.8-4.8); LYMPHOCYTES % (AUTO) 6.7 % (20.0-44.0); MEAN CORPUSCULAR HGB CONC 33 g/dl (31.0-36.0); MEAN CORPUSCULAR VOLUME 87 fL (80-96); MONOCYTES # (AUTO) 1.6 /CMM (0.1-1.30); NEUTROPHILS # (AUTO) 13.2 /CMM (1.8-8.9); NEUTROPHILS % (AUTO) 82.6 % (43.0-81.0); PLATELET COUNT (AUTO) 334 /CMM (150-450); RDW COEFFICIENT OF VARIATION 14.5 (11.5-15.0); RED BLOOD CELL COUNT(AUTO) 3.72 MIL/uL (4.5-6.0)
[2017-08-29 07:43] LABS: CALCIUM, SERUM 8.7 mg/dL (8.5-10.1); CREATININE 2.3 mg/dL (0.6-1.3); MAGNESIUM 1.9 mg/dL (1.8-2.4); PHOSPHORUS 3.9 mg/dL (2.5-4.9); POTASSIUM 4.7 mmol/L (3.5-5.1)
[2017-08-29 08:00] VITALS: BP 143/62
[2017-08-29] MEDS ORDERED: GENTAMICIN 160 MG in IV D5W 100 ML IV SCH (08:00)
[2017-08-29] MEDS: LINAGLIPTIN 5 MG TABLET PO SCH (08:43)
[2017-08-29] MEDS: METOPROLOL TARTRATE 25 MG TABLET PO SCH ×2 (08:43→16:40)
[2017-08-29] MEDS: AMLODIPINE BESYLATE 5 MG TABLET PO SCH (08:44)
[2017-08-29] MEDS ORDERED: FEE PK DOSING 1 MIN EA MC ONE ×2 (08:55)
[2017-08-29] MEDS ORDERED: SITAGLIPTIN PHOSPHATE 50 MG TABLET PO SCH (09:00)
[2017-08-29] MEDS ORDERED: GABAPENTIN 300 MG CAPSULE PO SCH (09:00)
[2017-08-29] MEDS: FUROSEMIDE 40 MG/4 ML VIAL IV SCH (09:27)
[2017-08-29] MEDS: HEPARIN SODIUM, PORCINE 5000 UNITS/1 ML VIAL SQ SCH ×2 (09:28→21:05)
--- NOTE | 2017-08-29 10:34 | NUR ---
MS RN NOTES SEEN AND EVALUATED BY DR MOTTA WITH NEW ORDERS MADE. NOTED AND CARRIED OUT.
[2017-08-29] MEDS: GABAPENTIN 300 MG CAPSULE PO SCH ×2 (13:00→16:40)
[2017-08-29 16:00] VITALS: BP 133/72
--- NOTE | 2017-08-29 18:46 | NUR ---
MS RN NOTES PATIENT IN BED TALKING TO HIS FAMILY. NO ACUTE DISTRESS NOTED. BREATHING UNLABORED. ON O2 @ 2LPM VIA NC. IV ACCESS PATENT AND INTACT. PARK CATHETER IN PLACE. DUE MEDICATIONS GIVEN, NO ASE NOTED. NEEDS ATTENDED AND ANTICIPATED. SAFETY MEASURES IN PLACE. CALL LIGHT WITHIN REACH. WILL CONTINUE TO MONITOR ACCORDINGLY. WILL ENDORSE TO NIGHT NURSE FOR CONTINUITY OF CARE.
--- NOTE | 2017-08-29 19:30 | NUR ---
MS RN OPENING NOTES: RECEIVED PATIENT IN BED, AOX4, ON O2 AT 2 LPM VIA NC, BREATHING EVEN AND UNLABORED. APPEARS CALM AND IN NO DISTRESS, BUT DOES COMPLAIN OF 5/10 PAIN OVER HIS LEFT LEG DESCRIBED INTERMITTENT AND THROBBING. PIV OVER RAC G 20 INTACT AND PATENT TO FLUSH. PARK CATHETER IN PLACE DRAINING CLEAR YELLOW URINE. PROVIDED FOR COMFORT AND SAFETY. BED IN LOWEST AND LOCKED POSITION, SIDERAILS UP X3 ON BARIMAXX BED, CALL LIGHT WITHIN REACH. WILL CONT TO MONITOR.
[2017-08-29 19:50] VITALS: BP 148/69
[2017-08-29 20:00] VITALS: BP 148/69
[2017-08-29] MEDS ORDERED: MEROPENEM 500 MG VIAL IV ONE (20:40)
[2017-08-29] MEDS: MEROPENEM 500 MG in IV NS 0.9% 50 ML IV SCH (20:53)
--- NOTE | 2017-08-29 20:54 | NUR ---
RN NOTES: PATIENT'S TEMP IS 100.1, INITIATED COOLING MEASURES AND ADMINISTERED TYLENOL 650 MG PO. WILL CONT TO MONITOR.
--- NOTE | 2017-08-29 21:42 | NUR ---
RN NOTES: PATIENT'S BLOOD SUGAR CHECKED AT 160 MG/DL, ADMINISTERED 2 UNITS REGULAR INSULIN PER SCALE. GAVE LIGHT SNACK. WILL CONT TO MONITOR.
[2017-08-30] MEDS: BLOOD SUGAR DIAGNOSTIC 1 EACH STRIP IN SCH ×4 (05:34→21:45)
[2017-08-30] MEDS: INSULIN REGULAR, HUMAN 100 UNIT/ML 3 ML VIAL SQ PRN ×4 (05:35→21:06)
--- NOTE | 2017-08-30 05:36 | NUR ---
BLOOD SUGAR 145: BLOOD SUGAR 145, 2UNITS OF INSULIN GIVEN PER SLIDING SCALE, PT TOLERATING PO INTAKE
--- NOTE | 2017-08-30 07:10 | NUR ---
MS RN CLOSING NOTES: PATIENT IN BED, AOX4, ON O2 AT 2 LPM VIA NC, BREATHING EVEN AND UNLABORED. APPEARS CALM AND IN NO DISTRESS. NOTED LEFT LEG WITH SWELLING AND REDNESS, OFFLOADED. PATIENT INSISTED ON HAVING HIS HEEL PROTECTOR FROM HOME ON AT ALL TIMES. PIV OVER RAC G 20 INTACT AND PATENT TO FLUSH. PARK CATHETER IN PLACE DRAINING DARK YELLOW URINE. AM BLOOD SUGAR CHECKED AT 145 MG/DL, 2 UNITS DUE MEDS GIVEN. PROVIDED FOR COMFORT AND SAFETY. BED IN LOWEST AND LOCKED POSITION, SIDERAILS UP X 3, CALL LIGHT WITHIN REACH. WILL ENDORSE TO AM RN FOR ALISON.
--- NOTE | 2017-08-30 07:10 | NUR ---
MS INITIAL RN NOTES: received patien on bed, HOB elevated, no complaints of pain. with 2L o2 via NC. on bariatric bed. AO x 4. able to make needs known. espinoza catheter in place, attached to drainage bag. IV intact and patent. call light within reach. will continue to monitor.
[2017-08-30 07:13] LABS: CALCIUM, SERUM 9.1 mg/dL (8.5-10.1); CREATININE 3.2 mg/dL (0.6-1.3); POTASSIUM 5.4 mmol/L (3.5-5.1)
[2017-08-30 08:00] VITALS: BP 135/73
[2017-08-30] MEDS: FUROSEMIDE 40 MG/4 ML VIAL IV SCH (08:20)
[2017-08-30] MEDS: GABAPENTIN 300 MG CAPSULE PO SCH ×3 (08:21→16:10)
[2017-08-30] MEDS: AMLODIPINE BESYLATE 5 MG TABLET PO SCH (08:21)
[2017-08-30] MEDS: LINAGLIPTIN 5 MG TABLET PO SCH (08:22)
[2017-08-30] MEDS: METOPROLOL TARTRATE 25 MG TABLET PO SCH ×2 (08:22→16:10)
[2017-08-30] MEDS: MEROPENEM 500 MG in IV NS 0.9% 50 ML IV SCH ×2 (08:23→18:53)
[2017-08-30] MEDS: HEPARIN SODIUM, PORCINE 5000 UNITS/1 ML VIAL SQ SCH ×2 (08:23→21:07)
[2017-08-30] MEDS ORDERED: VANCOMYCIN 1.5 GM in IV D5W 500 ML IV SCH (09:00)
[2017-08-30] MEDS ORDERED: SODIUM POLYSTYRENE SULFONATE 15 G/60 ML BOTTLE PO ONE (13:30)
[2017-08-30 16:00] VITALS: BP 136/63
--- NOTE | 2017-08-30 19:14 | NUR ---
ms rn closing notes All needs provided, attended, and anticipated. Endorsed patient in stable condition to continue care. call light with in patient reach.
--- NOTE | 2017-08-30 19:40 | NUR ---
MS RN OPENING NOTE Patient was seen lying in bed AAOx4, breathing on 2L O2 NC with no SOB, and no signs of acute distress. Patient has boot-pillow over left foot to offload heel; redness was noted on left lower extremity from cellulitis. Patient has [id number] amputation of right leg; scar noted and skin is intact. Ulloa catheter is draining cloudy, yellow urine (UTI present and documented). SL 22g IV is in the right FA. Bed is in low/locked position, two side rails up, and call monae within reach. Patient has no immediate needs or concerns at this time. Will continue to monitor.
[2017-08-30 20:06] VITALS: BP 146/75
[2017-08-31] MEDS: MEROPENEM 500 MG in IV NS 0.9% 50 ML IV SCH ×2 (06:41→18:58)
[2017-08-31] MEDS: BLOOD SUGAR DIAGNOSTIC 1 EACH STRIP IN SCH ×4 (06:52→21:20)
[2017-08-31 06:53] LABS: CALCIUM, SERUM 8.6 mg/dL (8.5-10.1); CREATININE 3.5 mg/dL (0.6-1.3); POTASSIUM 4.3 mmol/L (3.5-5.1)
[2017-08-31] MEDS: INSULIN REGULAR, HUMAN 100 UNIT/ML 3 ML VIAL SQ PRN ×4 (06:57→21:08)
--- NOTE | 2017-08-31 07:15 | NUR ---
MS RN INITIAL NOTES: -Received patient on bed, with head of bed elevated, asleep but easily woken. alert/ orientedx4. on 3L O2 via NC, no acute distress noted.IV on R arm intact and patent. Ulloa cath in place, draining well. no complaints as of the moment. patient in stable condition as endorsed by production supervisor off shift RN.
--- NOTE | 2017-08-31 07:19 | NUR ---
MS RN CLOSING NOTE Patient was seen sleeping in bed but awoke easily by name. He is AAOx4; O2 NC increased to 3L and head of the bed elevated for mild SOB, otherwise no signs of acute distress. Patient slept well overnight with no complaints. Meropenem is running through right FA IV. Ulloa catheter is draining yellow urine, output this shift 750mL. Bed is in low/locked position, two side rails up, and call monae within reach. Patient care endorsed to day shift nurse.
[2017-08-31 08:00] VITALS: BP 142/66
[2017-08-31] MEDS: GABAPENTIN 300 MG CAPSULE PO SCH ×3 (08:28→16:04)
[2017-08-31] MEDS: METOPROLOL TARTRATE 25 MG TABLET PO SCH ×2 (08:28→16:04)
[2017-08-31] MEDS: AMLODIPINE BESYLATE 5 MG TABLET PO SCH (08:29)
[2017-08-31] MEDS: LINAGLIPTIN 5 MG TABLET PO SCH (08:29)
[2017-08-31] MEDS: HEPARIN SODIUM, PORCINE 5000 UNITS/1 ML VIAL SQ SCH ×2 (08:30→20:58)
[2017-08-31] MEDS: HYDROCODONE/APAP 5/325MG 1 EACH TABLET PO PRN (08:31)
--- NOTE | 2017-08-31 11:07 | NUR ---
WOUND CARE CONSULT: PT PRESENTS WITH MULTIPLE SKIN ISSUES INCLUDING RT INNER THIGH STAGE 2 ULCER, LEFT INNER THIGH AND SACRAL SCARS, LEFT LOWER LEG SCALY SKIN WITH HEEL SCARRING AND TOE AMP SITE, RT AK STUMP (CLEAR) AND ABDOMINAL FOLD IRRITATION, PRESENT ON ADMISSION. CURRENT TIMOTHY SCORE IS 12. PT ON BARIDES ALLEMANDS ETS AIR BED. ALL SKIN PROTECTION AND WOUND CARE RECOMMENDATIONS DISCUSSED WITH NURSING STAFF. WILL SEE PRN. YEBOAH IN AGREEMENT WITH PLAN OF CARE. Addendum: 08/31/17 at 1110 by BUNNY JUNG WNDNU Amended: Links added.
[2017-08-31] MEDS ORDERED: HYDROGEL DRESSING 90 GM TUBE TP PRN (11:30)
[2017-08-31] MEDS: VITAMINS A AND D 56.7 GM TUBE TP SCH (16:02)
[2017-08-31] MEDS: HYDROGEL DRESSING 90 GM TUBE TP SCH (16:02)
--- NOTE | 2017-08-31 19:20 | NUR ---
ms rn closing notes All needs provided, attended, and anticipated. Endorsed patient in stable condition to continue care. call light with in patient reach.
--- NOTE | 2017-08-31 19:50 | NUR ---
MS RN OPENING NOTE Patient was seen in bed AAOx4, breathing on RA with no SOB, and no signs of acute distress. Patient was previously on NC, but states he has been using it intermittently and tolerating room air well. Right AKA noted. LL leg still shows redness and signs of cellulitis. Meropenem at 100 ml/hr is running through the right FA. Ulloa cath is draining yellow urine. Bed is in low/locked position, two side rails up, call monae within reach. Patient has no immediate needs or concerns at this time. Will continue to monitor.
[2017-08-31 20:00] VITALS: BP 132/65
[2017-08-31 20:18] VITALS: BP 132/65
--- NOTE | 2017-08-31 20:39 | NUR ---
MS RN NOTE - Wound Care Patient had wound consult, which gave instructions for basic wound care (i.e. hydrogel, mepilex, A&D ointment, etc) to inner thighs, abdominal folds, and lower left leg. Patient refused wound care treatment, stating that he anticipates going home tomorrow (shift report did state possible discharge), and he prefers to have his regular home health nurse be responsible for any skin care treatments. I provided patient with brief education about the purpose of the wound care, and told him that if he changed his mind, to let me know.
[2017-08-31] MEDS: DOXYCYCLINE HYCLATE (100 MG) 100 MG TABLET PO SCH (20:58)
[2017-09-01 06:50] LABS: BASOPHILS % (AUTO) 0.4 % (0.0-2.0); EOSINOPHILS % (AUTO) 2.9 % (0.0-6.0); HEMATOCRIT 31 % (39-51); HEMOGLOBIN 10.1 g/dL (13.5-17.5); LYMPHOCYTES # (AUTO) 1.3 /CMM (0.8-4.8); LYMPHOCYTES % (AUTO) 15.8 % (20.0-44.0); MEAN CORPUSCULAR HGB CONC 33 g/dl (31.0-36.0); MEAN CORPUSCULAR VOLUME 85 fL (80-96); MONOCYTES # (AUTO) 0.9 /CMM (0.1-1.30); MONOCYTES % (AUTO) 11.2 % (2.0-12.0); NEUTROPHILS # (AUTO) 5.8 /CMM (1.8-8.9); NEUTROPHILS % (AUTO) 69.7 % (43.0-81.0); PLATELET COUNT (AUTO) 359 /CMM (150-450); RDW COEFFICIENT OF VARIATION 14.4 (11.5-15.0); RED BLOOD CELL COUNT(AUTO) 3.59 MIL/uL (4.5-6.0); WHITE BLOOD COUNT (AUTO) 8.3 K/uL (4.3-11.0)
[2017-09-01] MEDS: MEROPENEM 500 MG in IV NS 0.9% 50 ML IV SCH ×2 (06:53→20:21)
[2017-09-01] MEDS: BLOOD SUGAR DIAGNOSTIC 1 EACH STRIP IN SCH ×4 (06:59→21:32)
[2017-09-01] MEDS: INSULIN REGULAR, HUMAN 100 UNIT/ML 3 ML VIAL SQ PRN ×2 (07:01→21:39)
--- NOTE | 2017-09-01 07:12 | NUR ---
MS RN OPENING NOTE RECEIVED BEDSIDE SBAR REPORT ON THE PATIENT. PATIENT IS A/O X4, AWAKE AND RESPONSIVE IN BED. BED IS LOCKED IN LOWEST POSITION, SIDE RAILS UP X3, BED ALARM IS ON. CALL LIGHT WITHIN REACH. EDUCATED TO CALL FOR ASSISTANCE USING THE CALL LIGHT AND VERBALIZED UNDERSTANDING. DENIES PAIN/DISCOMFORT AT THIS TIME. CHEST IS RISING EQUALLY BILATERALLY. IV CATHETER NOTED LICKING. IV INFUSION STOPPED. WILL RE-INSERT A NEW IV CATHETER. WILL CONTINUE TO ASSESS/MONITOR THROUGHOUT THE SHIFT.
--- NOTE | 2017-09-01 07:22 | NUR ---
IV CATHETER REMOVED WITH THE TIP INTACT. OCLUSIVE DRESSING APPLIED. NEW 22 GAUGE IV CATHETER IS INSERTVED IN RIGHT HAND. FLUSHED. INTACT AND PATENT. PATIENT TOLERATED PROCEDURE WELL. INFUSION RE-STARTED ORDERED.
--- NOTE | 2017-09-01 07:24 | NUR ---
MS RN OPENING NOTE RECEIVED BEDSIDE SBAR REPORT ON THE PATIENT. PATIENT IS A/O X4, AWAKE AND RESPONSIVE IN BED. BED IS LOCKED IN LOWEST POSITION, SIDE RAILS UP X3, BED ALARM IS ON. PATIENT IS IN BARIATRIC BED. CALL LIGHT WITHIN REACH. EDUCATED TO CALL FOR ASSISTANCE USING THE CALL LIGHT AND VERBALIZED UNDERSTANDING. DENIES PAIN/DISCOMFORT AT THIS TIME. CHEST IS RISING EQUALLY BILATERALLY. WILL CONTINUE TO ASSESS/MONITOR THROUGHOUT THE SHIFT.
--- NOTE | 2017-09-01 07:58 | NUR ---
MS RN CLOSING NOTE Patient AAOx4, breathing on 2L O2 NC with no SOB, and no acute distress. Patient slept well overnight with no complaints and no events. Vitals WNL, patient condition stable. IV 22g is in right FA (SL). Ulloa draining. Bed low/locked, two side rails up, call monae within reach. Pt care endorsed to day shift nurse.
[2017-09-01 08:00] VITALS: BP 147/82
--- NOTE | 2017-09-01 08:10 | NUR ---
PATIENT COMPLAINED OF SOB. 2L OXYGEN VIA NASAL CANNULA IS BEING ADMINISTERED. PATIENT PRESENTS WITH UNLABORED BREATHING. SPO2 94%
[2017-09-01 08:18] LABS: CREATININE 3.1 mg/dL (0.6-1.3); MAGNESIUM 2.1 mg/dL (1.8-2.4); PHOSPHORUS 4.9 mg/dL (2.5-4.9)
[2017-09-01 08:28] LABS: CALCIUM, SERUM 8.6 mg/dL (8.5-10.1); POTASSIUM 4.4 mmol/L (3.5-5.1)
[2017-09-01] MEDS: GABAPENTIN 300 MG CAPSULE PO SCH ×3 (09:37→17:10)
[2017-09-01] MEDS: DOXYCYCLINE HYCLATE (100 MG) 100 MG TABLET PO SCH ×2 (09:38→21:32)
[2017-09-01] MEDS: AMLODIPINE BESYLATE 5 MG TABLET PO SCH (09:38)
[2017-09-01] MEDS: METOPROLOL TARTRATE 25 MG TABLET PO SCH ×2 (09:38→17:11)
--- NOTE | 2017-09-01 09:39 | NUR ---
documented previous shift's missed medications as non-administered to rid of the red reminder in the emar.
[2017-09-01] MEDS: HEPARIN SODIUM, PORCINE 5000 UNITS/1 ML VIAL SQ SCH ×2 (10:03→21:37)
[2017-09-01] MEDS: VITAMINS A AND D 56.7 GM TUBE TP SCH (10:07)
[2017-09-01] MEDS: HYDROGEL DRESSING 90 GM TUBE TP SCH (10:08)
[2017-09-01] MEDS ORDERED: MERO500P IV (13:24)
[2017-09-01] MEDS ORDERED: DOXY100T2 PO (13:24)
[2017-09-01 15:45] VITALS: BP 140/73
[2017-09-01 16:00] VITALS: BP 140/73
--- NOTE | 2017-09-01 19:10 | NUR ---
PER WELDING MACHINE OPERATOR SUBMERGED ARC PATIENT'S DISCHARGE SHULD BE POSTPONED UNTIL TOMORROW, SICE THE SNF DOES NOT HAVE AVAILABLE BARIATRIC BED. DISCUSSED WITH THE CHARGE NURSE AND THE PATIENT AT THE BEDSIDE.
--- NOTE | 2017-09-01 19:30 | NUR ---
MS RN OPENING NOTES: PATIENT IN BED, AOX4, ON ROOM AIR AT THIS TIME, BREATHING EVEN AND UNLABORED. APPEARS CALM AND IN NO DISTRESS. DENIES PAIN AT THIS TIME. PIV OVER R HAND G22 INTACT AND PATENT TO FLUSH. PARK CATHETER IN PLACE, DRAINING CLOUDY YELLOW URINE. PER AM RN NURSE, PRAK WAS JUST CHANGED THIS AFTERNOON. PROVIDED FOR COMFORT AND SAFETY. BED IN LOWEST AND LOCKED POSITION, SIDERAILS UP X 3, CALL LIGHT WITHIN REACH. WILL CONT TO MONITOR.
--- NOTE | 2017-09-01 19:45 | NUR ---
PARK CATHETER REMOVED AND A NEW PARK CATHETER RE-INSERTED. PATIENT TOLERATED PROCEDURE WELL.
[2017-09-01 20:00] VITALS: BP 149/73
[2017-09-01 20:06] VITALS: BP 149/73
--- NOTE | 2017-09-01 20:10 | NUR ---
MS RN CLOSING NOTE GAVE BEDSIDE SBAR REPORT ON THE PATIENT. PATIENT IS A/O X4, AWAKE AND RESPONSIVE IN BED. BED IS LOCKED IN LOWEST POSITION, SIDE RAILS UP X3, BED ALARM IS ON. CALL LIGHT WITHIN REACH. EDUCATED TO CALL FOR ASSISTANCE USING THE CALL LIGHT AND VERBALIZED UNDERSTANDING. DENIES PAIN/DISCOMFORT AT THIS TIME. CHEST IS RISING EQUALLY BILATERALLY. ENDORSED TO THE FREIGHT CALLER NURSE FOR ALISON.
[2017-09-01] MEDS: MUPIROCIN OINT 2% 22 GM TUBE SCH (21:32)
--- NOTE | 2017-09-01 21:58 | NUR ---
RN NOTES: PATIENT'S BLOOD SUGAR CHECKED AT 132 MG/DL, ADMINISTERED 2 UNITS REGULAR INSULIN PER SCALE. WILL CONT TO MONITOR.
[2017-09-02] MEDS ORDERED: ALBUTEROL FS 2.5 MG/0.5 ML VIAL.NEB NEB PRN (02:00)
--- NOTE | 2017-09-02 05:08 | NUR ---
RN NOTES: PATIENT NOTED TO BE WHEEZING, BREATHING AT RATE OF 24/MINUTE. ELEVATED HOB, ON O2 AT 3 LPM VIA NC. CHECKED O2 SAT AT 99%. CALLED RT DHON FOR BREATHING TREATMENT.
[2017-09-02 05:10] VITALS: BP 157/73
[2017-09-02] MEDS: MEROPENEM 500 MG in IV NS 0.9% 50 ML IV SCH (07:00)
[2017-09-02] MEDS: BLOOD SUGAR DIAGNOSTIC 1 EACH STRIP IN SCH ×2 (07:00→12:00)
[2017-09-02] MEDS: INSULIN REGULAR, HUMAN 100 UNIT/ML 3 ML VIAL SQ PRN (07:07)
[2017-09-02 07:09] LABS: CALCIUM, SERUM 8.9 mg/dL (8.5-10.1); CREATININE 2.6 mg/dL (0.6-1.3); POTASSIUM 4.8 mmol/L (3.5-5.1)
--- NOTE | 2017-09-02 07:36 | NUR ---
MS RN CLOSING NOTES: PATIENT IN BED, AOX4, ON O2 A 3 LPM VIA NC, BREATHING AT RATE OF 22-24 PER MINUTE, WITH SLIGHT WHEEZING. O2 SAT MONITORED EARLIER AT 98-99%. BREATHING TREATMENT GIVEN. MAINTAINED HOB ELEVATED. MORNING BLOOD SUGAR CHECKED AT 140 MG/DL, ADMINISTERED 2 UNITS REGULAR INSULIN PER SCALE. PARK CATHETER IN PLACE DRAINING CLOUDY YELLOW URINE. MORNING CARE RENDERED. WOUND CARE DONE. PROVIDED FOR COMFORT AND SAFETY. BED IN LOWEST AND LOCKED POSITION, SIDERAILS UP X 3, CALL LIGHT WITHIN REACH. WILL ENDORSE TO AM RN FOR ALISON.
--- NOTE | 2017-09-02 07:36 | NUR ---
MS RN OPENING NOTE RECEIVED BEDSIDE SBAR REPORT ON THE PATIENT. PATIENT IS A/O X4, ASLEEP, EASILY AWAKEN IN BARIATRIC BED. BED IS LOCKED IN LOWEST POSITION, SIDE RAILS UP X3, BED ALARM IS ON. CALL LIGHT WITHIN REACH. EDUCATED TO CALL FOR ASSISTANCE USING THE CALL LIGHT AND VERBALIZED UNDERSTANDING. DENIES PAIN/DISCOMFORT AT THIS TIME. CHEST IS RISING EQUALLY BILATERALLY. WILL CONTINUE TO ASSESS/MONITOR THROUGHOUT THE SHIFT. CURRENTLY AWAITING FOR THE FACILILY TO INFORM US ONCE THE BARIATRIC BED IS READY SO PATIENT CAN BE DISCHARGED.
[2017-09-02 08:00] VITALS: BP 157/90
[2017-09-02 10:00] VITALS: BP 157/90
[2017-09-02] MEDS: GABAPENTIN 300 MG CAPSULE PO SCH ×2 (10:00→13:09)
[2017-09-02] MEDS: METOPROLOL TARTRATE 25 MG TABLET PO SCH (10:00)
[2017-09-02] MEDS: AMLODIPINE BESYLATE 5 MG TABLET PO SCH (10:00)
[2017-09-02] MEDS: DOXYCYCLINE HYCLATE (100 MG) 100 MG TABLET PO SCH (10:00)
[2017-09-02] MEDS: HEPARIN SODIUM, PORCINE 5000 UNITS/1 ML VIAL SQ SCH (10:02)
[2017-09-02] MEDS: MUPIROCIN OINT 2% 22 GM TUBE SCH (10:03)
[2017-09-02] MEDS: HYDROGEL DRESSING 90 GM TUBE TP SCH (10:03)
[2017-09-02] MEDS: VITAMINS A AND D 56.7 GM TUBE TP SCH (10:03)
--- NOTE | 2017-09-02 12:19 | NUR ---
Patient refused wound care and blood glucose check. Risks discussed at the bedside. Patient verbalized understanding and refused.
--- NOTE | 2017-09-02 12:49 | NUR ---
Gave telephone SBAR report to Brandon WHITLEY at [facility]
--- NOTE | 2017-09-02 14:14 | NUR ---
Discharge order received. Discharge education provided at the bedside. Patient verbalized full understanding of all the teachings. 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 SBAR report given to SNF. All belongings are accounted for. IV catheter removed with the tip intact. Occlusive dressing applied. patient presents with neurogenic bladder. Ulloa catheter left in place. Ulloa catheter emptied. 650 ml of cloudy , yellow urine drained. Skin assessment completed. Wound care was refused by the patient. Pictures taken and placed in chart 0500 am by PM nurse. All belongings are accounted for. Belongings list signed. Discharge pocket given to ambulance staff. Patient's belongings given to ambulance staff. Left the unit via bariatric gurney in stable condition accompanied by the ambulance staff.
[2017-09-02] MEDS ORDERED: LACTOBACILLUS RHAMNOSUS GG 1 EACH CAP.SPRINK PO SCH (17:00)
[2017-09-02] MEDS ORDERED: MEROPENEM 1 G in IV NS 0.9% 100 ML IV SCH (21:00)
== END 2017-09-02 14:15 | DRG 602 ==
LOC: ER 17:57 → MED 20:24
PROVIDERS: ADMIT Nurse Practitioner Acute Care; ATTEND Nurse Practitioner Acute Care
DX: L03.116 Cellulitis of left lower limb (principal); E43 Unspecified severe protein-calorie malnutrition; N17.0 Acute kidney failure with tubular necrosis; D68.59 Other primary thrombophilia; E11.22 Type 2 diabetes mellitus with diabetic chronic kidney disease; R53.2 Functional quadriplegia; I82.409 Acute embolism and thrombosis of unspecified deep veins of unspecified lower extremity; I13.0 Hypertensive heart and chronic kidney disease with heart failure and stage 1 through stage 4 chronic kidney disease, or unspecified chronic kidney disease; I50.9 Heart failure, unspecified; E11.40 Type 2 diabetes mellitus with diabetic neuropathy, unspecified; Z68.42 Body mass index [BMI] 45.0-49.9, adult; N39.0 Urinary tract infection, site not specified; E66.01 Morbid (severe) obesity due to excess calories; N31.9 Neuromuscular dysfunction of bladder, unspecified; Z95.1 Presence of aortocoronary bypass graft; Z88.0 Allergy status to penicillin; Z88.1 Allergy status to other antibiotic agents; Z79.899 Other long term (current) drug therapy; Z79.84 Long term (current) use of oral hypoglycemic drugs; Z79.4 Long term (current) use of insulin; G89.4 Chronic pain syndrome; D63.8 Anemia in other chronic diseases classified elsewhere; B96.89 Other specified bacterial agents as the cause of diseases classified elsewhere; T14.8XXA Other injury of unspecified body region, initial encounter; X58.XXXA Exposure to other specified factors, initial encounter; Y92.9 Unspecified place or not applicable; F32.9 Major depressive disorder, single episode, unspecified; N18.9 Chronic kidney disease, unspecified; E11.36 Type 2 diabetes mellitus with diabetic cataract; E11.65 Type 2 diabetes mellitus with hyperglycemia; K59.09 Other constipation; B96.1 Klebsiella pneumoniae [K. pneumoniae] as the cause of diseases classified elsewhere; I25.10 Atherosclerotic heart disease of native coronary artery without angina pectoris; E87.5 Hyperkalemia; Z89.612 Acquired absence of left leg above knee; Z89.611 Acquired absence of right leg above knee
CPT/HCPCS: 36415; 71045-TC; 76770-TC; 80048-TC; 80061-TC; 80076-TC; 81000-TC; 82962-TC; 83605-TC; 83735-TC; 83880; 84100-TC; 84484-TC; 85025-TC; 85730-TC; 87040-TC; 87081-TC; 87086-TC; 87186-TC; 93971-TC; 94799-TC; A4216; A4606; A6248; A6253; A6403; J0696; J1580; J1644; J1815; J1940; J2185; J2543; J3370; J3490; J7030; J7050; J7060; Z7610